=== PATIENT | female | born 1990 | race Hispanic/Latino ===

== ENCOUNTER 2017-04-27 19:50 | Emergency (ER) | payer OTHER ==
[2017-04-27 20:05] VITALS: BP 125/81; PULSE 90; RESP 16; TEMP 98.1; O2SAT 100
[2017-04-27] MEDS ORDERED: Sodium Chloride 0.9% 1,000 ML IV STA (20:27)
[2017-04-27] MEDS ORDERED: DiphenhydrAMINE 50 mg/ml Inj IVP STA (20:27)
--- NOTE | 2017-04-27 20:27 | ED PDOC ---
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 The patient states she was eating dinner and afterwards she felt anxious and jittery. She states that she felt throat irritations but had no difficulty breathing. The patient reports that her symptoms are consistent with allergic reactions she has had in the past but she has no EpiPen so she came to the ER for evaluation. Past Medical History Reviewed: Historical Data, Nursing Documentation, Vital Signs Vital Signs: Last Vital Signs Temp 98.1 F 04/27/17 20:00 Pulse 90 04/27/17 20:00 Resp 16 04/27/17 20:00 BP 125/81 04/27/17 20:00 Pulse Ox 100 04/27/17 20:00 - Medical History Other PMH: Mastocytosis - Family History Family History: States: Unknown Family Hx - Home Medications Home Medications: Ambulatory Orders Medication Instructions Recorded Epinephrine [Epipen] 0.3 mg IJ ONCE PRN #2 auto.injct 04/27/17 predniSONE [predniSONE Tab] 20 mg PO DAILY 3 Days 04/27/17 - Allergies Allergies/Adverse Reactions: Allergies Allergy/AdvReac Type Severity Reaction Status Date / Time Unobtainable Allergy Verified 04/27/17 20:26 Review of Systems ROS Statement: Except As Marked, All Systems Reviewed And Found Negative ENT: Negative for: Throat Swelling (No throat swelling but has some throast irritations.) Psych: Positive for: Anxiety (Anxious and Jittery.) Physical Exam - Reviewed Nursing Documentation Reviewed: Yes Vital Signs Reviewed: Yes - Physical Exam Appears: Positive for: Non-toxic, No Acute Distress (Anxious appearing) Skin: Positive for: Normal Color, Warm, Dry. Negative for: Rash (No urcitarial rash.) Eye Exam: Positive for: Normal appearance, EOMI, PERRL ENT: Positive for: Normal ENT Inspection Neck: Positive for: Normal, Painless ROM, Supple Cardiovascular/Chest: Positive for: Regular Rate, Rhythm, Chest Non Tender. Negative for: Tachycardia Respiratory: Positive for: Normal Breath Sounds. Negative for: Wheezing, Respiratory Distress Gastrointestinal/Abdominal: Positive for: Normal Exam, Bowel Sounds, Soft. Negative for: Tenderness Back: Positive for: Normal Inspection Extremity: Positive for: Normal ROM. Negative for: Tenderness, Pedal Edema, Deformity, Swelling Neurologic/Psych: Positive for: Alert, Oriented, Gait - ECG O2 Sat by Pulse Oximetry: 100 (RA) Pulse Ox Interpretation: Normal - Progress ED Course And Treament: Initial Impression: 26 year old female presenting with possible allergic reaction Initial Plan: * Benadryl 25 mg IVP * NS 1000ml IV 1000mls/hr * Pepcid 20mg IVP * Solu-Medrol 125 mg IVP * Reevaluation 2200 Patient feeling much better, all symptoms improved. Prescribed epi-pen for home use. Return precautions given. Scribe Attestation Documented by Zaina Graham acting as a scribe for Colt Mccormick MD. Provider Attestation All medical record entries made by the Scribe were at my direction and personally dictated by me. I have reviewed the chart and agree that the record accurately reflects my personal performance of the history, physical exam, medical decision making, and the department course for this patient. I have also personally directed, reviewed, and agree with the discharge instructions and disposition. Disposition - Clinical Impression Clinical Impression: Allergic reaction - Disposition Referrals: [facility] [Outside] Disposition Time: 22:00 Condition: IMPROVED Prescriptions: Epinephrine [Epipen] 0.3 mg IJ ONCE PRN #2 auto.injct PRN Reason: Anaphylaxis predniSONE [predniSONE Tab] 20 mg PO DAILY 3 Days Instructions: Anaphylaxis (ED), General Allergic Reaction (ED)
[2017-04-27] MEDS ORDERED: DiphenhydrAMINE 50 mg/ml Inj ONE (20:37)
== END 2017-04-27 22:15 | disposition home or self-care (01) ==
LOC: H.ER 19:50
DX: T78.2XXA Anaphylactic shock, unspecified, initial encounter (principal)